=== PATIENT | female | born 1955 | race Hispanic/Latino ===

== ENCOUNTER → 2020-03-23 | Day surgery (SDC) | payer BC, OTHER ==
[2020-03-20 10:03] LABS: BASOPHILS # (AUTO) 0.1 (0.0-0.1); EOSINOPHILS # (AUTO) 0.3 (0.0-0.4); EOSINOPHILS % 5.8 % (0.0-6.0); HEMATOCRIT 40.2 % (34.2-44.1); HEMOGLOBIN 13.3 g/dL (12.0-16.0); LYMPHOCYTES # (AUTO) 1.2 (1.0-3.2); LYMPHOCYTES % 25.8 % (18.0-39.1); MEAN CORPUSCULAR HEMOGLOBIN 30.5 pg (28-32); MEAN CORPUSCULAR HGB CONC 33.1 g/dL (31-35); MEAN CORPUSCULAR VOLUME 92.2 fL (81-99); MONOCYTES # (AUTO) 0.3 (0.2-0.8); MONOCYTES % 7.1 % (4.4-11.3); NEUTROPHILS # (AUTO) 2.9 (2.1-6.9); NEUTROPHILS % 60.1 % (38.7-80.0); PLATELET COUNT 292 x10e3/uL (140-360); RED BLOOD COUNT 4.36 x10e6/uL (3.6-5.1); RED CELL DISTRIBUTION WIDTH 12.9 % (11.7-14.4)
[2020-03-20 10:33] LABS: ALBUMIN 4.2 g/dL (3.5-5.0); ALBUMIN/GLOBULIN RATIO 1.4 (0.8-2.0); ANION GAP 13.9 mmol/L (8-16); CALCIUM 9.5 mg/dL (8.4-10.2); CREATININE, SERUM 1.12 mg/dL (0.57-1.11); POTASSIUM 4.9 mmol/L (3.5-5.1)
[2020-03-20 10:35] LABS: INR 0.9; PROTHROMBIN TIME 12.6 seconds (11.9-14.5)
[~2020-03-23] MED LIST: CALCIUM 500 +1 EAC2 PO; GLUCAGON FOR INJ 1 MG VIAL ONE; HYOSCYAMINE 0.125 MG TAB ONE; MAGNESIUM OXID400 MG PO; MIDAZOLAM HCL 2 MG/2 ML VIAL ONE; TACROLIMUS0.5 GM PO; TACROLIMUS1 MG PO
[2020-03-23 16:55] VITALS: BP 117/67
== END | disposition home or self-care (01) ==
LOC: OR 12:26
PROVIDERS: ATTEND Internal Medicine Gastroenterology
DX: Z09 Encounter for follow-up examination after completed treatment for conditions other than malignant neoplasm (principal); K63.5 Polyp of colon; K64.8 Other hemorrhoids; K57.30 Diverticulosis of large intestine without perforation or abscess without bleeding; I10 Essential (primary) hypertension; Z88.6 Allergy status to analgesic agent; Z88.1 Allergy status to other antibiotic agents; Z88.0 Allergy status to penicillin; Z01.810 Encounter for preprocedural cardiovascular examination; Z01.812 Encounter for preprocedural laboratory examination; Z11.59 Encounter for screening for other viral diseases; Z94.4 Liver transplant status; Z68.30 Body mass index [BMI] 30.0-30.9, adult; Z86.19 Personal history of other infectious and parasitic diseases
CPT/HCPCS: 36415; 45384; 45385; 80053; 85025; 85610; 85730; 93005; J1610; J2250; U0002; 45378

== ENCOUNTER 2020-11-25 08:18 | Inpatient (IN) | payer BC, MEDICARE ==
[~2020-11-25] VITALS: Ht 154.9 cm; Wt 76.7 kg
[~2020-11-25 08:18] MED LIST changes: -GLUCAGON FOR INJ 1 MG VIAL ONE; -HYOSCYAMINE 0.125 MG TAB ONE; -MIDAZOLAM HCL 2 MG/2 ML VIAL ONE
[2020-11-25] MEDS ORDERED: ONDANSETRON HCL INJ 2MG/ML 2ML 2 MG/ML VIAL IV STA (08:30)
[2020-11-25] MEDS ORDERED: SODIUM CHLORIDE 0.9% 1000ML 1,000 ML IV STA (08:30)
[2020-11-25 08:46] LABS: BASOPHILS % 0.7 % (0.0-1.0); EOSINOPHILS # (AUTO) 0.4 (0.0-0.4); EOSINOPHILS % 6.6 % (0.0-6.0); HEMATOCRIT 40.6 % (34.2-44.1); HEMOGLOBIN 13.5 g/dL (12.0-16.0); LYMPHOCYTES # (AUTO) 1.4 (1.0-3.2); MEAN CORPUSCULAR HGB CONC 33.3 g/dL (31-35); MEAN CORPUSCULAR VOLUME 93.1 fL (81-99); MONOCYTES # (AUTO) 0.3 (0.2-0.8); MONOCYTES % 5.7 % (4.4-11.3); NEUTROPHILS # (AUTO) 3.6 (2.1-6.9); NEUTROPHILS % 61.8 % (38.7-80.0); PLATELET COUNT 286 x10e3/uL (140-360); RED BLOOD COUNT 4.36 x10e6/uL (3.6-5.1); RED CELL DISTRIBUTION WIDTH 12.5 % (11.7-14.4)
[2020-11-25 08:59] LABS: CLARITY,URINE CLEAR (CLEAR); COLOR,URINE YELLOW (YELLOW); KETONES,URINE NEGATIVE (NEGATIVE); LEUKOCYTE ESTERASE ,URINE NEGATIVE (NEGATIVE); NITRITE,URINE NEGATIVE (NEGATIVE); PROTEIN,URINE DIPSTICK NEGATIVE (NEGATIVE); URINE UROBILINOGEN 0.2 mg/dL (0.2 - 1)
[2020-11-25 09:00] LABS: ALANINE AMINOTRANSFERASE 13 IU/L (0-55); ALBUMIN 4.1 g/dL (3.5-5.0); ALBUMIN/GLOBULIN RATIO 1.3 (0.8-2.0); ALKALINE PHOSPHATASE 61 IU/L (40-150); ANION GAP 14.6 mmol/L (8-16); BLOOD UREA NITROGEN 24 mg/dL (7-26); BUN/CREATININE RATIO 23 (6-25); CALCIUM 8.8 mg/dL (8.4-10.2); CARBON DIOXIDE 23 mmol/L (22-29); CHLORIDE 108 mmol/L (98-107); CREATINE KINASE 46 IU/L (29-168); CREATININE, SERUM 1.06 mg/dL (0.57-1.11); EST GLOMERULAR FILTRATION RATE 52 ML/MIN (60-); GLUCOSE 123 mg/dL (74-118); MAGNESIUM 1.8 MG/DL (1.3-2.1); POTASSIUM 4.6 mmol/L (3.5-5.1); SODIUM 141 mmol/L (136-145)
[2020-11-25 09:12] LABS: BACTERIA,URINE RARE /HPF; EPITHELIAL CELLS,URINE FEW /LPF; RBC,URINE 0-5 /HPF (0-5); WBC,URINE (MAN) 0-5 /HPF (0-5)
[2020-11-25] MEDS ORDERED: ASPIRIN 81 MG CHEW TAB PO NR (10:08)
[2020-11-25] MEDS ORDERED: ONDANSETRON HCL INJ 2MG/ML 2ML 2 MG/ML VIAL IV PRN (10:15)
[2020-11-25] MEDS: SODIUM CHLORIDE 0.9% 1000ML 1,000 ML IV SCH ×2 (11:46→21:02)
[2020-11-25 13:09] VITALS: BP 133/77
[2020-11-25 13:15] VITALS: BP 133/77
[2020-11-25 14:27] LABS: CREATINE KINASE 47 IU/L (29-168)
[2020-11-25 15:49] VITALS: BP 127/61
[2020-11-25] MEDS ORDERED: IOPAMIDOL 370 MG/ML 200 ML INFUS..BTL INJ ONE (16:16)
[2020-11-25] MEDS ORDERED: SODIUM CHLORIDE 0.9% 100 ML ONE (16:16)
[2020-11-25 20:00] VITALS: BP 110/60
[2020-11-26] VITALS (7 sets, daily range): BP systolic 104–129; BP diastolic 65–71
[2020-11-26] MEDS: SODIUM CHLORIDE 0.9% 1000ML 1,000 ML IV SCH ×2 (05:10→16:35)
[2020-11-26 06:50] LABS: BASOPHILS # (AUTO) 0.1 (0.0-0.1); BASOPHILS % 0.9 % (0.0-1.0); EOSINOPHILS # (AUTO) 0.5 (0.0-0.4); EOSINOPHILS % 8.4 % (0.0-6.0); HEMATOCRIT 37.3 % (34.2-44.1); HEMOGLOBIN 12.1 g/dL (12.0-16.0); LYMPHOCYTES # (AUTO) 1.4 (1.0-3.2); LYMPHOCYTES % 25.6 % (18.0-39.1); MEAN CORPUSCULAR HEMOGLOBIN 30.9 pg (28-32); MEAN CORPUSCULAR HGB CONC 32.4 g/dL (31-35); MEAN CORPUSCULAR VOLUME 95.4 fL (81-99); MONOCYTES # (AUTO) 0.4 (0.2-0.8); MONOCYTES % 6.9 % (4.4-11.3); NEUTROPHILS # (AUTO) 3.2 (2.1-6.9); PLATELET COUNT 266 x10e3/uL (140-360); RED BLOOD COUNT 3.91 x10e6/uL (3.6-5.1); RED CELL DISTRIBUTION WIDTH 12.7 % (11.7-14.4)
[2020-11-26 07:13] LABS: ALBUMIN 3.5 g/dL (3.5-5.0); ALBUMIN/GLOBULIN RATIO 1.3 (0.8-2.0); ANION GAP 10.1 mmol/L (8-16); CALCIUM 8.4 mg/dL (8.4-10.2); CHOL/HDL RATIO 3.6 (3.0-3.6); CREATININE, SERUM 1.1 mg/dL (0.57-1.11); POTASSIUM 5.1 mmol/L (3.5-5.1)
[2020-11-26 08:21] LABS: CREATINE KINASE 49 IU/L (29-168)
[2020-11-26] MEDS ORDERED: ACETAMINOPHEN 325 MG TAB PO PRN (16:45)
[2020-11-27] VITALS (8 sets, daily range): BP systolic 109–134; BP diastolic 58–72
[2020-11-27] MEDS: SODIUM CHLORIDE 0.9% 1000ML 1,000 ML IV SCH ×3 (05:37→23:34)
[2020-11-27] MEDS ORDERED: MAGNESIUM HYDROXIDE 30 ML UDC PO ONE (18:00)
[2020-11-27] MEDS: ATORVASTATIN 20 MG TAB PO SCH (21:00)
[2020-11-28] VITALS (8 sets, daily range): BP systolic 109–116; BP diastolic 54–68
[2020-11-28] MEDS: SODIUM CHLORIDE 0.9% 1000ML 1,000 ML IV SCH ×3 (08:15→19:43)
[2020-11-28] MEDS: DOCUSATE SODIUM 100 MG CAP PO SCH ×2 (09:00→16:19)
[2020-11-28] MEDS ORDERED: ONDANSETRON HCL 4 MG ORAL DISINTEGRATING TAB PO PRN (09:45)
[2020-11-28] MEDS: ATORVASTATIN 20 MG TAB PO SCH (20:27)
[2020-11-29] VITALS (11 sets, daily range): BP systolic 117–155; BP diastolic 54–80
[2020-11-29] MEDS: SODIUM CHLORIDE 0.9% 1000ML 1,000 ML IV SCH (05:28)
[2020-11-29] MEDS: DOCUSATE SODIUM 100 MG CAP PO SCH (07:44)
[2020-11-29] MEDS ORDERED: HEPARIN SOD (PORCINE) 1000 UNIT/ML 30ML ONE (07:53)
[2020-11-29] MEDS ORDERED: FENTANYL CITRATE/PF 100MCG/2 ML INJ ONE (07:53)
[2020-11-29] MEDS ORDERED: MIDAZOLAM HCL 2 MG/2 ML VIAL ONE ×2 (07:53→08:24)
[2020-11-29] MEDS ORDERED: LIDOCAINE HCL 2% LOCAL 20 ML VIAL ONE (07:54)
[2020-11-29] MEDS ORDERED: HEPARIN SOD/SOD CHLORIDE 2,000 ML ONE (07:54)
[2020-11-29] MEDS ORDERED: IOPAMIDOL 370 MG/ML 200 ML INFUS..BTL INJ ONE (07:54)
[2020-11-29] MEDS ORDERED: NITROGLYCERIN/D5W 200 MCG/ML 250 ML ONE (08:24)
[2020-11-29] MEDS ORDERED: VERAPAMIL HCL 2.5 MG/ML 2 ML VIAL ONE (08:24)
== END 2020-11-29 15:30 | disposition home or self-care (01) | DRG 68 ==
LOC: ER 08:33 → ERHOLD 10:13 → MED/SURG 13:00 → OBSVTOIN 11-27 11:29 → UNDODISIN 11-29 13:13
PROC: B3151ZZ Fluoroscopy of Bilateral Common Carotid Arteries using Low Osmolar Contrast (ICD-10-PCS; principal; 2020-11-27)
PROC: B3181ZZ Fluoroscopy of Bilateral Internal Carotid Arteries using Low Osmolar Contrast (ICD-10-PCS; 2020-11-27)
PROC: B31C1ZZ Fluoroscopy of Bilateral External Carotid Arteries using Low Osmolar Contrast (ICD-10-PCS; 2020-11-27)
DX: I65.22 Occlusion and stenosis of left carotid artery (principal); Z94.4 Liver transplant status; I10 Essential (primary) hypertension; Z88.1 Allergy status to other antibiotic agents; Z88.5 Allergy status to narcotic agent; Z88.0 Allergy status to penicillin; Z84.89 Family history of other specified conditions
CPT/HCPCS: 36415; 70450; 70496; 70498; 70551; 71045; 80053; 80061; 81001; 82550; 82553; 82948; 83735; 83880; 84484; 85025; 93005; 93306; 93880; 99152; 99284; C1887; C1894; G0378; J1644; J2001; J2250; J2405; J3010; J7030; J7050; Q9967; U0002

== ENCOUNTER → 2021-11-30 | Outpatient (CLI) | payer MEDICARE | LOC: MRI 08:41 | PROVIDERS: ATTEND Family Medicine | DX: M23.304 Other meniscus derangements, unspecified medial meniscus, left knee (principal); M25.562 Pain in left knee ==

== ENCOUNTER → 2022-08-09 | Outpatient (CLI) | payer MEDICARE | LOC: MAMMO 13:59 | PROVIDERS: ATTEND Family Medicine | DX: Z12.31 Encounter for screening mammogram for malignant neoplasm of breast (principal) | CPT/HCPCS: 77067 ==

== ENCOUNTER → 2024-12-02 | Outpatient (REF) | payer MEDICARE ==
[~2024-12-02] MED LIST changes: +CEPHALEXIN500 MG PO; +IOPAMIDOL 370 MG/ML 100 ML INFUS..BTL INJ ONE; +MAG-OXIDE400 MG PO; +OYSCO 500+D TA1 EACH PO; +ROSUVASTATIN CAL5 MG PO; +SODIUM CHLORIDE 0.9% 500ML 500 ML ONE; +ULTRAM 50MG50 MG PO
[2024-12-02 14:51] LABS: EST GLOMERULAR FILTRATION RATE 45.0 ML/MIN (>=60)
== END ==
LOC: CT 13:36
PROVIDERS: ATTEND Family Medicine
DX: Z09 Encounter for follow-up examination after completed treatment for conditions other than malignant neoplasm (principal); R22.0 Localized swelling, mass and lump, head; R51.9 Headache, unspecified
CPT/HCPCS: 36415; 70487; 82565; 84520; J7040; Q9967